=== PATIENT | male | born 1960 | race Caucasian/White ===

== ENCOUNTER 2016-12-11 18:22 | Emergency (ER) | payer MEDICAID, OTHER ==
[~2016-12-11] VITALS: Ht 162.6 cm; Wt 60.0 kg
[2016-12-11 18:53] LABS: HEMATOCRIT. 30.1 % (42.0-52.0); HEMOGLOBIN. 9.6 g/dL (14.0-18.0); MEAN CORPUSCULAR HEMOGLOBIN 30.5 pg (28.0-32.0); MEAN CORPUSCULAR HGB CONC 31.9 g/dL (31.0-37.0); MEAN CORPUSCULAR VOLUME 95.7 fL (80.0-94.0); MEAN PLATELET VOLUME 6.6 fl (7.4-10.4); PLATELET 529 x1000/uL (130-400); RED BLOOD CELL COUNT 3.14 mill/uL (4.7-6.1); RED CELL DISTRIBUTION WIDTH 16.9 % (11.6-14.6); WHITE BLOOD COUNT 16.5 x1000/uL (4.5-11.0)
[2016-12-11 18:57] LABS: DIFFERENTIAL COMMENT 1
[2016-12-11 18:58] LABS: INR 1.2; PROTHROMBIN TIME 12.6 sec
[2016-12-11 19:01] LABS: ALBUMIN 2.8 g/dL (3.4-5.0); ANION GAP 16; CALCIUM 9.6 mg/dL (8.5-10.1); CARBON DIOXIDE 27 mEq/L (21-32); CHLORIDE 100 mEq/L (98-107); INDEX HEMOLYSI 1 (1-3); INDEX ICTERIC 1 (1-4); INDEX LIPEMIC 1 (1-3); UREA NITROGEN BLOOD 15 mg/dL (7-21)
[2016-12-11 19:08] LABS: ALANINE AMINOTRANSFERASE 8 IU/L (13-61); TROPONIN I 0.08 ng/mL (0.00-0.04); eGFR > 60 mL/min (>60)
[2016-12-11 19:19] LABS: NT PRO B-TYPE NATRIURETIC PEP 454 pg/mL (5-125)
[2016-12-11 19:23] LABS: PLATELET ESTIMATE INCREASED
[2016-12-11] MEDS ORDERED: ALBUTEROL (0.083%) 2.5MG/3ML NEB HHN STA (20:09)
[2016-12-11 22:15] VITALS: BP 106/65
== END 2016-12-11 22:15 | disposition home or self-care (01) ==
LOC: ER 18:23
DX: R05 Cough (principal); R06.02 Shortness of breath; Z93.0 Tracheostomy status
CPT/HCPCS: 36415; 71010; 80053; 83880; 84484; 85025; 85610; 93005; 94640; 99285; J7611; X7700; Z7610